=== PATIENT | male | born 1950 | race Caucasian/White ===

== ENCOUNTER → 2018-03-12 | Outpatient (CLI) | payer BC | LOC: COL.VAS 09:21 | DX: I65.22 Occlusion and stenosis of left carotid artery (principal) ==

== ENCOUNTER → 2021-07-16 | Outpatient (CLI) | payer BC, MEDICARE | LOC: COL.RAD 12:25 | DX: E03.9 Hypothyroidism, unspecified (principal) ==

== ENCOUNTER 2021-12-28 12:48 | Outpatient (RCR) | payer BC | END 2022-01-04 | disposition home or self-care (01) | LOC: PT.GENESIS | DX: M17.11 Unilateral primary osteoarthritis, right knee (principal) ==

== ENCOUNTER 2022-02-02 11:00 | Outpatient (RCR) | payer BC | END 2022-02-03 | disposition still patient (30) | LOC: PT.GENESIS | DX: M17.11 Unilateral primary osteoarthritis, right knee (principal) ==

== ENCOUNTER 2022-03-03 10:45 | Outpatient (RCR) | payer BC | END 2022-03-06 | disposition home or self-care (01) | LOC: PT.GENESIS | DX: M17.11 Unilateral primary osteoarthritis, right knee (principal) ==

== ENCOUNTER 2022-03-15 10:15 | Outpatient (RCR) | payer BC | END 2022-03-21 09:25 | disposition home or self-care (01) | LOC: PT.GENESIS 10:15 | DX: M17.11 Unilateral primary osteoarthritis, right knee (principal) ==